=== PATIENT | female | born 1955 | race Caucasian/White ===

== ENCOUNTER 2024-01-30 03:01 | Emergency (ER) | payer MEDICARE, MEDICAID ==
[~2024-01-30] VITALS: Ht 165.1 cm; Wt 80.0 kg
[2024-01-30 03:39] LABS: BASO # 0.1 10^3/uL (0.0-0.2); BASO % 0.7 % (0.0-1.0); EOS # 0.1 10^3/uL (0.0-0.5); EOS % 1.2 % (0.0-3.0); HEMATOCRIT 43.2 % (36.0-47.0); HEMOGLOBIN 14.6 g/dl (12.0-15.5); LYMPH # 1.6 10^3/uL (1.5-5.0); MEAN CORPUSCULAR HEMOGLOBIN 29.5 pg (27.0-33.0); MEAN CORPUSCULAR HGB CONC 33.8 g/dl (32.0-36.5); MEAN CORPUSCULAR VOLUME 87.3 fl (80.0-96.0); MONO # 0.9 10^3/uL (0.0-0.8); MONO % 8.9 % (2.0-8.0); NEUTROPHILS # 7.7 10^3/uL (1.5-8.5); NEUTROPHILS % 73.9 % (36.0-66.0); PLATELET COUNT, AUTOMATED 289 10^3/uL (150-450); RED BLOOD COUNT 4.95 10^6/uL (4.00-5.40); WHITE BLOOD COUNT 10.4 10^3/uL (4.0-10.0)
[2024-01-30 04:06] LABS: CK-MB VALUE MASS 1.8 NG/ML (<3.6)
[2024-01-30 04:08] LABS: CALCIUM LEVEL 10.6 MG/DL (8.3-10.6); CREATININE FOR GFR 1.06 MG/DL (0.55-1.30); GLOMERULAR FILTRATION RATE 54.9 (>45); MAGNESIUM LEVEL 2.4 MG/DL (1.8-2.4); MB/CK RELATIVE INDEX 1.57 (< OR =4)
[2024-01-30 04:10] LABS: THYROID STIMULATING HORMONE 3.99 uIU/ML (0.55-4.78)
[2024-01-30 04:11] LABS: FREE T4 1.23 NG/DL (0.89-1.76)
[2024-01-30] MEDS: hydrALAZINE 20MG/ML 1ML VIAL IV STA (05:24)
[2024-01-30] MEDS ORDERED: ISOVUE-370 76% 100ML VIAL As Ordered ONE (06:20)
[2024-01-30] MEDS: clonazePAM 1 MG TAB PO ONE (06:29)
[2024-01-30 07:02] LABS: CK-MB VALUE MASS 1.8 NG/ML (<3.6)
[2024-01-30 07:03] LABS: MB/CK RELATIVE INDEX 1.55 (< OR =4)
[2024-01-30] MEDS ORDERED: atenoloL 50 MG TAB PO ONE (07:30)
[2024-01-30 08:21] LABS: RSV AMPLIFICATION NEGATIVE (NEGATIVE)
[2024-01-30 09:24] VITALS: BP 176/100; TEMP 97.4; O2SAT 96
[2024-01-30 09:28] VITALS: BP 154/72
== END 2024-01-30 09:38 | disposition short-term general hospital (02) ==
LOC: M ED 03:01
DX: I16.0 Hypertensive urgency (principal); R55 Syncope and collapse; I25.10 Atherosclerotic heart disease of native coronary artery without angina pectoris; E78.5 Hyperlipidemia, unspecified; Z88.8 Allergy status to other drugs, medicaments and biological substances; Z91.040 Latex allergy status
CPT/HCPCS: 70450; 71045; 71275; 80047; 80048; 82550; 82553; 83735; 84439; 84443; 84484; 85025; 87631; 93005; 93041; 94760; 96374; 99285; J0360; Q9967